=== PATIENT | male | born 1975 | race Hispanic/Latino ===

== ENCOUNTER 2020-02-21 18:47 | Emergency (ER) | payer SELFPAY | END 2020-02-21 20:05 | disposition home or self-care (01) | LOC: EDH 18:47 | DX: S91.111A Laceration without foreign body of right great toe without damage to nail, initial encounter (principal); W25.XXXA Contact with sharp glass, initial encounter; Y93.89 Activity, other specified; Y92.89 Other specified places as the place of occurrence of the external cause; Y99.8 Other external cause status | CPT/HCPCS: 12042; 73630 ==